=== PATIENT | female | born 1950 | race American Indian/Alaskan Native ===

== ENCOUNTER 2018-03-17 10:16 | Outpatient (CLI) | payer MEDICARE, OTHER ==
--- NOTE | 2018-03-24 13:00 | Mammography Report ---
BILATERAL DIGITAL DIAGNOSTIC MAMMOGRAM with CAD and RIGHT BREAST ULTRASOUND: 03/17/18 10:30:00 CLINICAL: Right palpable breast lump. COMPARISON:02/05/15 FINDINGS: The breasts are heterogeneously dense, which may obscure small masses.A right subareolar oval slightly irregular retroareolar mass is identified on spot magnification views in the area of the palpable marker . No architectural distortion or suspicious calcifications. Left breast is negative. Ultrasound of the right breast in the area of the palpable marker demonstrated an irregular heterogeneous spiculated mass with mixed echogenicity and shadowing. It measures approximately 9 x 7 mm. The palpable finding is more impressive than the ultrasound finding but probably correlates with the mammographic mass. At the time of my scan, the patient also described to me a palpable lump at 5 o'clock approximately 5 cm from the nipple. Ultrasound in this area demonstrated an irregular heterogeneous hypoechoic mass with shadowing measuring approximately 9 x 7 mm. IMPRESSION: Two suspicious palpable masses of the right breast with palpable findings that are more impressive than ultrasound or mammographic findings. Recommend ultrasound guided needle core biopsy of the right breast at 2 sites. BI-RADS CATEGORY: 4--Suspicious I discussed the findings and the recommendation for two ultrasound guided needle biopsies of the right breast with the patient at the time of the examination. ACR BI-RADS MAMMOGRAPHIC CODES: 0 = Needs additional imaging evaluation; 1 = Negative; 2 = Benign; 3 = Probably benign; 4 = Suspicious; 5 = Malignant; 6 = Known biopsy-proven malignancy COMMENT: 1. Dense breast tissue, i.e., adenosis, fibrocystic changes, etc., may obscure an underlying neoplasm. 2. Approximately 10% of cancers are not detected with mammography. 3. A negative mammography report should not delay biopsy if a clinically suspicious mass is present. COMMENT: Patient follow-up letters are generated by our [employer] application.
== END 2018-03-17 10:17 | disposition home or self-care (01) ==
LOC: SPVWC 10:16
PROVIDERS: ATTEND Nurse Practitioner Family
DX: N63.10 Unspecified lump in the right breast, unspecified quadrant (principal)
CPT/HCPCS: 77066

== ENCOUNTER 2018-04-20 14:12 | Outpatient (CLI) | payer MEDICARE, OTHER ==
--- NOTE | 2018-04-21 09:02 | Ultrasound Report ---
ULTRASOUND GUIDED NEEDLE CORE BIOPSY OF A RIGHT AXILLARY LYMPH NODE WITH CLIP PLACEMENT : 04/20/18 14:12:00 CLINICAL: Known right breast cancer with a suspicious right axillary lymph node. COMPARISON :03/17/18 FINDINGS: The procedure was explained to the patient and informed consent was obtained. Ultrasound demonstrated a suspicious lymph node with asymmetrically thickened cortex measuring 6 mm. The skin in the axilla was prepped with Betadine and anesthetized with 1% lidocaine. Ultrasound guided needle core biopsy of the lymph node was performed through a small dermatotomy using 2% lidocaine with epinephrine for deep anesthesia and a 18-gauge Achieve biopsy device. 2 samples were obtained and placed in formalin. A clip was deployed within the lymph node. Hemostasis was achieved with minimal pressure and a sterile dressing was applied. The patient tolerated the procedure well and there were no apparent complications. She was discharged in good condition and was given instructions for wound care and followup. IMPRESSION: Uncomplicated ultrasound-guided needle core biopsy of a right axillary lymph node with clip placement.
== END 2018-04-20 14:13 | disposition home or self-care (01) ==
LOC: SPVWC 14:12
PROVIDERS: ATTEND Surgery
DX: C50.911 Malignant neoplasm of unspecified site of right female breast (principal)
CPT/HCPCS: 38505; 76942; 88305

== ENCOUNTER 2018-05-02 09:06 | Outpatient (CLI) | payer MEDICARE, OTHER ==
--- NOTE | 2018-05-03 08:47 | Magnetic Resonance Report ---
BILATERAL BREAST MRI WITHOUT AND WITH CONTRAST: 05/02/18 09:06:00 CLINICAL: Newly diagnosed right breast cancer at 8 o'clock near the nipple and at 5 o'clock 5 cm from the nipple. She had an ultrasound guided needle biopsy at both sites on 04/14/18 with pathologic result of invasive carcinoma with lobular features at 8 o'clock and invasive lobular carcinoma at 5 o'clock. She also had an ultrasound guided needle biopsy of a right axillary lymph node on 04/21/18 which demonstrated metastatic tumor. COMPARISON:03/17/18 bilateral mammogram and right breast ultrasound. TECHNIQUE: Axial 1.0-mm T1 without, axial high resolution 2.0-mm T2 and axial 1.0-mm dynamic Vibrant high-resolution postcontrast T1 fat saturation sequences on a 1.5 Penny magnet. The examination was performed with an 8 channel dedicated [place] breast coil. Post processing with CAD and subtraction was performed on an [employer] workstation. 16 cc of Multihance was injected without incident for the contrast portion of the exam. Consent was obtained prior to the administration of the contrast. FINDINGS: Right: Moderate background parenchyma enhancement. An irregular enhancing mass at 8 o'clock 2.2 cm from the nipple measures 18.5 x 9.7 x 5.6 mm. It contains a biopsy clip and correlates with a known cancer. It demonstrates heterogeneous enhancement with mixed kinetics, 124% peak enhancement, 65% type I persistent, 35% type II plateau and 0% type III washout. An irregular spiculated poorly enhancing mass at 5 o'clock 6.3 cm from the nipple correlates with the second known cancer. It measures approximately 2.2 x 1.0 x 1.0 cm. It demonstrates heterogeneous enhancement with mixed kinetics, 115% peak enhancement, 79% type I persistent, 20 recent type II plateau in 1% type III washout. A third suspicious lesion of focal non-Mass enhancement is identified in the lower outer quadrant 8.9 cm from the nipple. It measures approximately 1.0 x 1.0 x 0.4 cm and demonstrates heterogeneous enhancement with mixed kinetics, 264% peak enhancement, 76% type I persistent, 24% type II plateau in 0% type III washout. A 2.1 x 1.2 cm level I right axillary lymph node contains a biopsy clip and correlates with the proven metastatic lymph node. A second level II right axillary lymph node is suspicious with minimal central fat and measures 1.0 cm maximum. Left: Minimal background parenchymal enhancement. No mass or suspicious enhancement. No suspicious left axillary or left internal mammary lymph nodes. IMPRESSION: 1. Multicentric right breast cancer with two biopsy proven cancers and a third highly suspicious lesion of non-Mass enhancement. 2. Right axillary lymph node metastasis with two abnormal right axillary lymph nodes. 3. Negative left breast. RIGHT BI-RADS 6 -- Known Cancer LEFT BI-RADS 1 -- Negative
== END 2018-05-02 09:07 | disposition home or self-care (01) ==
LOC: SPVIMAG 09:06
PROVIDERS: ATTEND Surgery
DX: C50.912 Malignant neoplasm of unspecified site of left female breast (principal)
CPT/HCPCS: A9577; C8908; 77059

== ENCOUNTER 2018-05-18 05:54 | Day surgery (SDC) | payer MEDICARE ==
[~2018-05-18 05:54] MED LIST: ANCEF/STERILE WATER 2 GM/20 ML 2 GM/20 ML SYRINGE IV NR; LACTATED RINGERS 1,000 ML IV SCH
[2018-05-18] MEDS ORDERED: VERSED IV NR (06:00)
[2018-05-18] MEDS ORDERED: NACL BACTERIOSTATIC INFILTRATI ONE (06:30)
--- NOTE | 2018-05-18 07:07 | Anesthesia Day of Surgery ---
Anesthesia Day of Surgery - Day of Surgery Patient Examined: Yes Patient H&P Reviewed: Yes Patient is NPO: Yes
--- NOTE | 2018-05-18 07:07 | Anesthesia Consultation ---
Anesthesia Consult and Med Hx Date of service: 05/18/18 - Airway Anesthetic Teeth Evaluation: Good ROM Head & Neck: Adequate Mental/Hyoid Distance: Adequate Mallampati Class: Class II Intubation Access Assessment: Probably Good - Pulmonary Exam CTA: Yes - Cardiac Exam Cardiac Exam: RRR - Pre-Operative Health Status ASA Pre-Surgery Classification: ASA3 Proposed Anesthetic Plan: General, MAC - Cardiovascular System Hx Hypertension: Yes - Central Nervous System Hx Psychiatric Problems: No - Endocrine Hx Non-Insulin Dependent Diabetes: Yes - Other Systems Hx Alcohol Use: No Hx Substance Use: No Hx Cancer: Yes
[2018-05-18] MEDS ORDERED: MARCAINE 0.5% 30 ML INFILTRATI ONE (07:17)
[2018-05-18] MEDS ORDERED: NACL 0.9% 250ML 250 ML ONE (07:17)
[2018-05-18] MEDS ORDERED: XYLOCAINE 1% 20 mL ONE (07:17)
[2018-05-18] MEDS ORDERED: HEPARIN ONE (07:17)
[2018-05-18] MEDS ORDERED: GELFOAM TP ONE (07:17)
[2018-05-18] MEDS ORDERED: HEPARIN 10,000 UNITS/10 ML ONE (07:20)
[2018-05-18] MEDS ORDERED: SUBLIMAZE ONE (07:24)
[2018-05-18] MEDS ORDERED: VERSED ONE (07:24)
[2018-05-18] MEDS ORDERED: DIPRIVAN 10 MG/ML IV ONE (07:24)
[2018-05-18] MEDS ORDERED: DILAUDID IV PRN (07:30)
[2018-05-18] MEDS ORDERED: PERCOCET 5/325 PO PRN (07:30)
[2018-05-18] MEDS ORDERED: ZOFRAN IV PRN (07:30)
--- NOTE | 2018-05-18 07:41 | Short Stay Summary ---
Short Stay Documentation Date of service: 05/18/18 - History H&P: obtained from office - Allergies and Medications Current Medications: Allergies No Known Allergies Allergy (Verified 05/11/18 16:03) Home Medications Medication Instructions Recorded Confirmed Last Taken Type Glimepiride [Amaryl] 4 mg PO BID 05/11/18 05/18/18 05/17/18 17:30 History Losartan Potassium 100 mg PO DAILY 05/11/18 05/18/18 05/17/18 10:00 History Metformin HCl [Glucophage] 1,000 mg PO BID 05/11/18 05/18/18 05/17/18 17:00 History Active Medications Hydromorphone HCl (Dilaudid) 0.25 mg IV Q10MIN PRN PRN Reason: Pain, Moderate (4-6) Stop: 05/18/18 18:00 Lactated Ringer's (Lactated Ringers) 1,000 mls @ 100 mls/hr IV DIRECT JUSTINA Last Admin: 05/18/18 06:50 Dose: 100 mls/hr Cefazolin Sodium (Ancef/Sterile Water 2 Gm/20 Ml) 2 gm in 20 mls @ 80 mls/hr IV PREOP NR; Protocol Stop: 05/18/18 23:59 Midazolam HCl (Versed) 2 mg IV PREOP NR Stop: 05/18/18 23:59 Last Admin: 05/18/18 07:08 Dose: 2 mg Ondansetron HCl (Zofran) 4 mg IV ONCE PRN PRN Reason: Nausea And Vomiting Stop: 05/18/18 18:00 Oxycodone/Acetaminophen (Percocet 5/325) 1 tab PO ONCE PRN PRN Reason: Pain, Moderate (4-6) Stop: 05/18/18 16:00 - Physical exam General appearance: no acute distress, well-nourished Integumentary: no rash HEENT: EOMI Lungs: Normal air movement - Brief post op/procedure progress note Date of procedure: 05/18/18 (Dictation:[id number]) Pre-op diagnosis: breast cancer Post-op diagnosis: same Procedure: Ultrasound guided port placement Anesthesia: GETA Findings: normal anatomy Surgeon: MARIEL ERAZO Estimated blood loss: minimal (10cc) Pathology: none Condition: stable - Hospital course Hospital course: uneventful - Disposition Condition at discharge: Stable Disposition: DC-01 TO HOME OR SELFCARE Short Stay Discharge Plan Diet: regular Wound: open to air, keep clean and dry, other (May shower tomorrow. Pat dry wounds. Apply ice 4-5x/day for 10-15min at a time for 1 week) Special Instructions: no heavy lifting (or strenuous activity for 1 week) Additional Instructions: KEEP WOUND OPEN TO AIR AND CLEAN AND DRY MAY SHOWER IN AM PAT WOUND DRY APPLY ICE 4-5 TIMES PER DAY FOR 10-15 MINUTES AT A TIME FOR [address] CAUSEY FOR ALL QUESTIONS AND CONCERNS AND FOR FOLLOW UP APPOINTMENT Follow up with: BRAIN COLIN MD [Primary Care Provider] - 7 Days Forms: Outpatient Surgery DC Inst. Prescriptions: oxyCODONE /ACETAMINOPHEN [Percocet 5/325 mg] 1 tab PO Q6H PRN #20 tablet PRN Reason: Pain, Moderate (4-6)
[2018-05-18] MEDS ORDERED: NACL 0.9% IR ONE (08:22)
[2018-05-18] MEDS ORDERED: MARCAINE 0.5% INFILTRATI ONE (08:22)
[2018-05-18] MEDS ORDERED: HEPARIN IV ONE (08:22)
[2018-05-18] MEDS ORDERED: NACL 0.9% 250ML IV ONE (08:27)
[2018-05-18] MEDS ORDERED: NEO SYNEPHRINE/NS Syringe(OR USE) IV ONE (08:28)
[2018-05-18] MEDS ORDERED: XYLOCAINE MPF 2% ONE (08:28)
[2018-05-18] MEDS ORDERED: DECADRON ONE (08:29)
[2018-05-18] MEDS ORDERED: ZOFRAN ONE (08:29)
[2018-05-18] MEDS ORDERED: XYLOCAINE 1% 20 mL INFILTRATI ONE (08:29)
--- NOTE | 2018-05-18 09:22 | Fluoroscopy Report ---
AP CHEST: HISTORY: Breast cancer, Tesgrk-c-Vvew insertion Left subclavian Jbrieq-t-Vnmt has been inserted which terminates in the right atrium. No pneumothorax is visualized. AP view of the chest demonstrates a normal mediastinal and cardiac contour with clear lungs and normal bony and soft tissue structures. IMPRESSION: Left Arrzdw-m-Fnaf insertion. No pneumothorax.
--- NOTE | 2018-05-18 10:17 | Post Anesthesia Evaluation ---
- Post Anesthesia Evaluation Patient Participated: Yes Airway Patent: Yes Stable Respiratory Function: Yes Temp > 96.8F: Yes Pain Manageable: Yes Adequeate Hydration: Yes Anesthesia Complications: No
[2018-05-18 11:22] VITALS: BP 135/79
--- NOTE | 2018-05-18 17:09 | Operative Report ---
PREOPERATIVE DIAGNOSIS: Right breast cancer. POSTOPERATIVE DIAGNOSIS: Right breast cancer. PROCEDURES: 1. Insertion of tunneled CV catheter, CPT CODE 22603. 2. Ultrasound-guided vascular access, CPT CODE 65224. ATTENDING PHYSICIAN: Yeimy Spencer MD ANESTHESIA: General. ESTIMATED BLOOD LOSS: Less than 20 mL. FINDINGS: Normal vascular anatomy. IMPLANTS: Infusaport. COMPLICATIONS: None. DISPOSITION: Stable, transferred to Recovery Room. INDICATIONS: This is a 67-year-old female with a recent diagnosis of breast cancer. She was assessed to be in need for chemotherapy. Request have been made for port placement. Procedure, risks, benefits were explained to the patient. Risks included but were not limited to infection, bleeding, pain, injury to surrounding structures, possible hemopneumothorax, possible catheter malfunction, and need for replacement. The patient understood and consented. OPERATIVE NOTE: The patient was brought to the operating room and placed on the table in supine position. After adequate general anesthesia was established, the patient was properly positioned with a roll underneath the back. Sterile prep and drape was performed. Left arm was tucked to the side. All pressure points were padded. Antibiotics have been given prior to start of the case. SCDs were in place. Time-out was called. I began by evaluating the left subclavian vein and surrounding structures. I saw an easily identified vein with the ultrasound. It was easily compressible. I saw no clot within it. I saw no signs of stenosis or obstruction. I felt this was a good target. I anesthetized the planned access site with a combination of 1% lidocaine and 0.5% Marcaine. The patient was in Trendelenburg position. When attempt was made using an ultrasound visible needle. I accessed the vein under direct vision with the ultrasound. We watched the needle go into the vein and had good aspiration of blood that appeared venous. I could see the tip of the needle within the vein itself. We were able to access it on the first attempt, guidewire was easily passed. We confirmed the position of the wire with fluoroscopy, it was going towards the heart. We then decided where to place the port itself. The planned insertion site was anesthetized with the numbing medicine. Site was incised pocket was bluntly created. Electrocautery was used for hemostasis. We checked to make sure the port fit properly. Thereafter, we tunneled the catheter up to the vascular access site. Dilator and sheath were passed over the wire and then catheter was inserted. We adjusted the length and positioning under fluoroscopy. Thereafter, we made the connections to the port and inserted the port into the pocket. I checked the port and the catheter. We had easy aspiration and flushing with dilute heparinized saline. We then removed the sheath in its entirety, placed the catheter completely into the tract underneath the skin and then we rechecked the position with fluoroscopy, it appeared to be in a relatively good position. The patient had no arrhythmias. Vitals were completely stable. We then made sure we had good hemostasis. I closed the port pocket site with interrupted 3-0 Vicryl sutures in the dermis. Skin was closed with 4-0 Monocryl subcuticular sutures. Skin was cleaned and dried. Dermabond was placed. The patient tolerated procedure well. We did an x-ray immediately at the end of the case with the patient in the upright position. I saw no evidence of pneumothorax and the official report confirmed that. Catheter appeared to be in a good position. The patient tolerated procedure well. There were no complications. All counts were correct at the end of the case. JOB# [id number] JERZY/TRISTAN
== END 2018-05-18 11:09 | disposition home or self-care (01) ==
LOC: OR 05:54
PROVIDERS: ATTEND Surgery
DX: C50.911 Malignant neoplasm of unspecified site of right female breast (principal); E11.9 Type 2 diabetes mellitus without complications; I10 Essential (primary) hypertension; Z79.84 Long term (current) use of oral hypoglycemic drugs; Z98.890 Other specified postprocedural states
CPT/HCPCS: 36561; 77001; 82962; A4649; C1788; J0690; J1100; J1644; J2250; J2370; J2405; J2704; J3010; J7050; J7120

== ENCOUNTER 2018-05-26 10:38 | Outpatient (CLI) | payer MEDICARE ==
--- NOTE | 2018-05-26 14:20 | PET Report ---
PET/CT:05/26/18 10:38:00 CLINICAL: Breast cancer initial staging. Newly diagnosed multicentric invasive lobular right breast cancer. Biopsy confirm right axillary lymph node metastasis. RADIOPHARMACEUTICAL: 14.64mCi F18-FDG. COMPARISON: MRI Breast 05/02/18 TECHNIQUE- Following intravenous injection of F-18 FDG and an approximately 60 minute uptake period, CT and PET images from the mid skull to the upper thighs were acquired with the patient in the fasted state. No contrast was administered. The CT protocol used for this PET CT study is designed for attenuation correction and anatomic localization of PET abnormalities. This real estate portfolio manager CT is not desired to produce and cannot replace, tjtzr-oz-gqw-art diagnostic CT scans with specific imaging protocols for different body parts and indications. Plasma glucose at the time of this test: 148g/dl. The standardized uptake values (SUV) are normalized to patient body weight and indicate the highest activity concentration (SUV max) in a given disease site. FINDINGS: Brain--Physiologic FDG uptake in the visualized regions of the brain. Neck--Physiologic FDG uptake in mucosal structures. Chest--Physiologic FDG uptake in mediastinal blood pool and myocardium. Lungs--No abnormal uptake. No pulmonary nodule or mass. Pleura/pericardium--No abnormal uptake. Thoracic nodes--Three small right axillary lymph nodes with mild FDG uptake slightly greater than background. The largest correlates with the biopsy proven metastatic lymph node. It measures 1.0 cm with SUV 3.1. Hepatobiliary--No abnormal uptake. Liver background SUV mean, as a reference for comparing FDG studies, is 3.2 . No liver mass. Spleen--No abnormal uptake. Pancreas--No abnormal uptake. Adrenal Glands--No abnormal uptake. Kidneys/Ureters/Bladder--No abnormal uptake. Abdominopelvic Nodes--No abnormal uptake. Bowel/Peritoneum/Mesentery--No abnormal uptake. Physiologic FDG uptake throughout small and large bowel. Pelvic organs--No abnormal uptake. However, the left ovary is mildly enlarged with numerous punctate calcifications. It measures 3.6 x 2.8 cm. FDG uptake is equal and the normal uterus with a SUV 2.5. A right ovary is not identified. Bones/Soft Tissues--No abnormal uptake and no suspicious bone lesions. Other findings: 2 biopsy clips in the right breast correlate with known cancers. However, no abnormal FDG uptake in the right breast. IMPRESSION-1. Right breast cancer with biopsy proven right axillary janey metastasis. 2. No evidence of additional metastatic disease. 3. An enlarged left ovary with punctate calcifications. Recommend further evaluation with pelvic ultrasound.
== END 2018-05-26 10:39 | disposition home or self-care (01) ==
LOC: PET 10:38
PROVIDERS: ATTEND Internal Medicine Hematology & Oncology
DX: C50.111 Malignant neoplasm of central portion of right female breast (principal); I10 Essential (primary) hypertension; E11.9 Type 2 diabetes mellitus without complications
CPT/HCPCS: 78815; 82962; A9552

== ENCOUNTER 2018-07-04 09:16 | Outpatient (CLI) | payer MEDICARE ==
--- NOTE | 2018-07-04 11:35 | Ultrasound Report ---
ULTRASOUND PELVIC COMPLETE ULTRASOUND TRANSVAGINAL HISTORY: Ovarian mass. COMPARISON: PET CT dated 05/26/18. TECHNIQUE: Transabdominal and transvaginal ultrasound with color doppler interrogation. FINDINGS: Uterus: The uterus is retroflexed and measures 5.7 x 2.7 x 4.8 cm. No evidence for uterine mass. The cervix is unremarkable. Endometrium: 3 mm. No mass or infiltrative changes. Right ovary: 2.2 x 0.9 x 1.1 cm. No focal abnormality. Left ovary: No normal left ovary is identified. The left ovary measures 2.6 x 1.3 x 2.9 cm and appears to be partially calcified within diffuse posterior shadowing. No discrete mass is identified secondary to shadowing artifact. No pelvic fluid or mass is identified. Normal color doppler interrogation. IMPRESSION: Abnormal left ovary. The left ovary appears predominantly calcified although no discrete mass is demonstrated on ultrasound. The etiology of this is unclear. A neoplastic process cannot be excluded although this lesion is not hypermetabolic on PET imaging. Chronic torsion?
== END 2018-07-04 09:17 | disposition home or self-care (01) ==
LOC: US 09:16
PROVIDERS: ATTEND Obstetrics & Gynecology
DX: N83.9 Noninflammatory disorder of ovary, fallopian tube and broad ligament, unspecified (principal); I10 Essential (primary) hypertension; E11.9 Type 2 diabetes mellitus without complications
CPT/HCPCS: 76830; 76856

== ENCOUNTER 2018-11-24 09:47 | Outpatient (CLI) | payer MEDICARE ==
--- NOTE | 2018-11-28 13:14 | PET Report ---
PET/CT:11/24/18 09:47:00 CLINICAL: Breast cancer restaging. History of multicentric invasive lobular right breast cancer and right axillary janey metastasis. RADIOPHARMACEUTICAL: 15.494mCi F18-FDG. COMPARISON: 05/26/18 PET/CT TECHNIQUE- Following intravenous injection of F-18 FDG and an approximately 60 minute uptake period, CT and PET images from the mid skull to the upper thighs were acquired with the patient in the fasted state. No contrast was administered. The CT protocol used for this PET CT study is designed for attenuation correction and anatomic localization of PET abnormalities. This piggery worker CT is not desired to produce and cannot replace, dxzxs-lg-dyn-art diagnostic CT scans with specific imaging protocols for different body parts and indications. Plasma glucose at the time of this test: 101g/dl. The standardized uptake values (SUV) are normalized to patient body weight and indicate the highest activity concentration (SUV max) in a given disease site. FINDINGS: Brain--Physiologic FDG uptake in the visualized regions of the brain. Neck--Physiologic FDG uptake in mucosal structures. No mass or lymphadenopathy. Chest--Physiologic FDG uptake in mediastinal blood pool and myocardium. 2 biopsy clips in the right breast and no breast mass. Lungs--No abnormal uptake. No pulmonary nodule or mass. Pleura/pericardium--No abnormal uptake. Thoracic nodes--No abnormal uptake in no lymphadenopathy. A biopsy clip and a right axillary lymph node. Hepatobiliary--No abnormal uptake. Liver background SUV mean, as a reference for comparing FDG studies, is 3.2 compared to 3.5 on the last exam. No liver mass. Spleen--No abnormal uptake. Pancreas--No abnormal uptake. Adrenal Glands--No abnormal uptake. Kidneys/Ureters/Bladder--No abnormal uptake. Abdominopelvic Nodes--No abnormal uptake. Bowel/Peritoneum/Mesentery--No abnormal uptake. Pelvic organs--No abnormal uptake. Bones/Soft Tissues--No abnormal uptake and no suspicious bone lesion. Other findings: Physiologic uptake throughout the small and large bowel. IMPRESSION- Negative study with no evidence of disease recurrence or metastasis.
== END 2018-11-24 09:48 | disposition home or self-care (01) ==
LOC: PET 09:47
PROVIDERS: ATTEND Surgery
DX: C50.511 Malignant neoplasm of lower-outer quadrant of right female breast (principal); I10 Essential (primary) hypertension; E11.9 Type 2 diabetes mellitus without complications
CPT/HCPCS: 78815; 82962; A9552

== ENCOUNTER 2018-11-29 13:52 | Outpatient (CLI) | payer MEDICARE ==
--- NOTE | 2018-11-29 14:22 | Mammography Report ---
RIGHT DIGITAL DIAGNOSTIC MAMMOGRAM with CAD: 11/29/18 13:52:00 CLINICAL: Followup right breast cancer at 2 sites. COMPARISON:04/13/18 FINDINGS: The breast is heterogeneously dense with a stable fibroglandular pattern. Biopsy clips at 5 o'clock and 6 o'clock No mass, architectural distortion or suspicious calcifications. IMPRESSION: No mammographic evidence of malignancy. BI-RADS CATEGORY: 2 - - Benign RECOMMENDATION: Routine mammographic screening. ACR BI-RADS MAMMOGRAPHIC CODES: 0 = Needs additional imaging evaluation; 1 = Negative; 2 = Benign; 3 = Probably benign; 4 = Suspicious; 5 = Malignant; 6 = Known biopsy-proven malignancy COMMENT: 1. Dense breast tissue, i.e., adenosis, fibrocystic changes, etc., may obscure an underlying neoplasm. 2. Approximately 10% of cancers are not detected with mammography. 3. A negative mammography report should not delay biopsy if a clinically suspicious mass is present. COMMENT: Patient follow-up letters are generated by our [employer] application.
--- NOTE | 2018-11-29 16:19 | Ultrasound Report ---
RIGHT BREAST ULTRASOUND: 11/29/18 13:52:00 CLINICAL: Right breast cancer at 2 sites status post chemotherapy. COMPARISON: 04/13/18 and 03/17/18 right breast ultrasound FINDINGS: Ultrasound of the right breast(including all four quadrants and the retroareolar area) was performed. An irregular mixed echogenicity mass with irregular and poorly defined margins and shadowing at 5 o'clock 4 cm from the nipple correlates with a known cancer. The mass is slightly smaller and measures 9 x 8 x 7 mm. The mass previously measured approximately 12 x 12 mm at the time of biopsy. Focal duct ectasia but no residual mass at 8 o'clock near the areola at the site of the second cancer. No other mass, no fluid collection or cysts. IMPRESSION: A residual 9 mm mass at 5 o'clock 4 cm from the nipple. Partial response to chemotherapy. Duct ectasia but no mass at 8 o'clock near the areola at the site of the second known cancer. BI-RADS 6 -- Known Cancer
== END 2018-11-29 13:53 | disposition home or self-care (01) ==
LOC: SPVWC 13:52
PROVIDERS: ATTEND Surgery
DX: C50.511 Malignant neoplasm of lower-outer quadrant of right female breast (principal); N60.41 Mammary duct ectasia of right breast; N63.14 Unspecified lump in the right breast, lower inner quadrant; I10 Essential (primary) hypertension; E11.9 Type 2 diabetes mellitus without complications

== ENCOUNTER 2019-09-05 05:44 | Day surgery (SDC) | payer MEDICARE ==
--- NOTE | 2019-09-04 11:23 | Short Stay Summary ---
Short Stay Documentation Date of service: 09/05/19 - History H&P: obtained from office - Allergies and Medications Current Medications: Allergies No Known Allergies Allergy (Verified 08/21/19 12:22) Home Medications Medication Instructions Recorded Confirmed Last Taken Type Glimepiride [Amaryl] 4 mg PO BID 05/11/18 08/21/19 12/06/18 History metFORMIN XR [Glucophage XR] 500 mg PO BID 12/06/18 08/21/19 12/06/18 History Anastrozole [Arimidex] 1 mg PO DAILY 08/21/19 08/21/19 Unknown History - Physical exam General appearance: no acute distress Integumentary: no rash HEENT: Atraumatic Lungs: Normal air movement Neurological: Normal speech - Brief post op/procedure progress note Date of procedure: 09/05/19 (dictation: [id number]) Pre-op diagnosis: history of breast cancer Post-op diagnosis: same Procedure: Port catheter removal IVF 400cc EBL min Anesthesia: MAC Findings: normal tissue. Surgeon: MARIEL ERAZO Estimated blood loss: minimal Pathology: list (midportion of catheter) Specimen disposition: to lab Condition: stable - Hospital course Hospital course: uneventful - Disposition Condition at discharge: Stable Disposition: [id number]-01 TO HOME OR SELFCARE Short Stay Discharge Plan Diet: regular Wound: open to air, keep clean and dry Special Instructions: no heavy lifting Additional Instructions: Post Operative Instructions Activity: no heavy lifting for next 1 week. May shower tomorrow. Pat dry the wound or wounds. Keep incision sites clean and dry After surgery, start with a light diet. Consider having a liquid diet first. If you do well, you can advance to a regular diet as you feel comfortable. Apply an ice pack to the wound or wounds for 10-20 minutes at a time. Do this at least 4-5 times a day. You can do it more if he would like. Alternate the use of ibuprofen and Tylenol for the first 2 days. I want you to take these on a scheduled basis. Take 600 mg of ibuprofen every 6 hours. Take 500 mg of Tylenol every 6 hours. You should alternate these 2 medicines. In other words, beginning with the ibuprofen. After 3 hours, take the Tylenol. Keep alternating the 2 drugs every 3 hours. Do this on a scheduled basis for the first 2 days. After that, you can take them as needed. It is very important that you use the prescription pain medicine only for very severe pain. Do not take the prescription medicine before you try using the ibuprofen and Tylenol. We will call you in a couple of days to see how youre doing. If you have any questions or concerns, always feel free to call the clinic at any time. Follow up with: BRAIN COLIN MD [Primary Care Provider] - 7 Days Forms: Outpatient Surgery DC Inst. Prescriptions: HYDROcodone/APAP 5-325 [Axis 5-325 mg TAB] 1 each PO Q6HR PRN #10 tablet PRN Reason: Pain , Severe (7-10)
[2019-09-05] MEDS ORDERED: GABAPENTIN 300 MG CAP PO NR (06:00)
[2019-09-05] MEDS ORDERED: CELECOXIB 200 MG CAP PO NR (06:00)
[2019-09-05] MEDS ORDERED: ceFAZolin/Water 2 GM/20 ML 2 GM/20 ML SYRINGE IV NR (06:00)
[2019-09-05] MEDS ORDERED: SODIUM CHLORIDE 0.9% 1000 ML 1,000 ML IV SCH (06:00)
[2019-09-05] MEDS ORDERED: ACETAMINOPHEN 500 MG TAB PO SCH (06:00)
[2019-09-05] MEDS ORDERED: BACTERIOSTATIC SODIUM CHLORIDE 0.9% 30 ML VIAL INFILTRATI ONE (06:20)
[2019-09-05] MEDS ORDERED: BUPIVACAINE-EPINEPHRINE/PF 0.5%-1:200,000 (30 ML) VIAL INFILTRATI ONE ×2 (06:56→08:15)
[2019-09-05] MEDS ORDERED: LIDOCAINE (1%) 10 MG/1 ML VIAL 20 ML MDV ONE (06:56)
--- NOTE | 2019-09-05 07:12 | Anesthesia Day of Surgery ---
Anesthesia Day of Surgery - Day of Surgery Patient Examined: Yes Patient H&P Reviewed: Yes Patient is NPO: Yes
--- NOTE | 2019-09-05 07:14 | Anesthesia Consultation ---
Anesthesia Consult and Med Hx Date of service: 09/05/19 - Airway Anesthetic Teeth Evaluation: Good, Caps ROM Head & Neck: Adequate Mental/Hyoid Distance: Adequate Mallampati Class: Class II Intubation Access Assessment: Probably Good - Pre-Operative Health Status ASA Pre-Surgery Classification: ASA2 Proposed Anesthetic Plan: General, MAC - Pulmonary Hx Smoking: No Hx Asthma: No - Cardiovascular System Hx Hypertension: Yes - Central Nervous System Hx Seizures: No Hx Psychiatric Problems: No - Endocrine Hx Non-Insulin Dependent Diabetes: Yes Hx Thyroid Disease: No - Hematic Hx Anemia: Yes - Other Systems Hx Alcohol Use: No Hx Substance Use: No Hx Cancer: Yes
[2019-09-05] MEDS ORDERED: LIDOCAINE MPF (2%) 20 MG/1 ML VIAL 5 ML ONE (07:37)
[2019-09-05] MEDS ORDERED: fentaNYL 100 MCG/2 ML INJ ONE (07:37)
[2019-09-05] MEDS ORDERED: PROPOFOL 200 MG/20 ML VIAL IV ONE (07:38)
[2019-09-05] MEDS ORDERED: MIDAZOLAM 2 MG/2 ML INJ IV NR (08:00)
[2019-09-05] MEDS ORDERED: LIDOCAINE (1%) 10 MG/1 ML VIAL 20 ML MDV INFILTRATI ONE (08:15)
[2019-09-05] MEDS ORDERED: SODIUM CHLORIDE 0.9% IRR 1,000 ML BOTTLE IR ONE (08:15)
[2019-09-05 09:16] VITALS: BP 132/73
--- NOTE | 2019-09-05 20:02 | Post Anesthesia Evaluation ---
- Post Anesthesia Evaluation Patient Participated: Yes Airway Patent: Yes Stable Respiratory Function: Yes Nausea/Vomiting: No Temp > 96.8F: Yes Pain Manageable: Yes Adequeate Hydration: Yes Anesthesia Complications: No Block Receding Appropriately: Not Applicable Patient on Ventilator: No
--- NOTE | 2019-09-05 22:35 | Operative Report ---
PREOPERATIVE DIAGNOSIS: History of breast cancer. POSTOPERATIVE DIAGNOSIS: History of breast cancer. PROCEDURE: Removal of port catheter. ATTENDING PHYSICIAN: Yeimy Spencer MD. ANESTHESIA: Local MAC. ESTIMATED BLOOD LOSS: Minimal. FLUIDS: 400 mL. FINDINGS: Normal catheter and port cavity. SPECIMENS: Mid portion of the catheter. DRAINS: None. DISPOSITION: Stable, transferred to recovery room. INDICATIONS: This is a 68-year-old female who recently completed her chemotherapy for breast cancer. She returns to clinic for removal of port catheter. She would like this to be done in the operating room due to anxiety of the procedure. Procedure, risks, benefits were explained to the patient. Risks included but were not limited to infection, bleeding, pain, injury to surrounding structures, possible need for further procedures in the future. The patient understood and consented. OPERATIVE NOTE: The patient was brought to the operating room and placed on the table in supine position. After adequate sedation was established, the patient was prepped and draped in the usual sterile fashion. SCDs were in place and antibiotics had been administered. Timeout had been called. I began by anesthetizing the old incision site as well as the surrounding area with 0.5% Marcaine and 1% lidocaine. Old incision was incised sharply. Dissection was carried down to the port. Using electrocautery, I dissected away the capsule and the surrounding adhesions. The port was then easily removed from the capsule. The patient was in Trendelenburg position at this point, pressure was starting to be held over the insertion site into the vein. The catheter was removed. Pressure was held. I excised the mid portion of the catheter without touching it and sent that for culture. We held pressure for at least 5 minutes. During that time, I was injecting the surrounding area with local anesthetic. We used a total of 40 mL. After approximately 5 minutes, we released the pressure and then I proceeded to close the deep tissue with interrupted 3-0 Vicryl sutures and skin with a running 4-0 Monocryl subcuticular stitch. I did in this manner so that we would have at least a few minutes to observe for any bleeding, there was none. The pocket was completely clean and hemostatic. No evidence of any bleeding. At this point, the patient was in reverse Trendelenburg position. Skin was cleaned and dried. Dermabond was placed. The patient tolerated the procedure well. There were no complications. All counts were correct at the end of the case. I did advise the family that it would be best to use an ice pack frequently. This discussion was held preoperatively as well, but I emphasized to them that they should have a moderate weight ice pack to hold pressure over the area to help with the inflammation and to minimize risk of recurrent bleeding. One of the concerns that I have was during the case she was coughing quite a bit. I was concerned that postoperatively if she began to cough she might increase the venous pressures such that the temporary clot may come off. This was explained to the family so that they understood and they were advised to let me know if they start to see signs of bruising. JOB# [id number] JERZY/TRISTAN
== END 2019-09-05 05:45 | disposition home or self-care (01) ==
LOC: OR 05:44
PROVIDERS: ATTEND Surgery
DX: Z45.2 Encounter for adjustment and management of vascular access device (principal); I10 Essential (primary) hypertension; E11.9 Type 2 diabetes mellitus without complications; Z80.0 Family history of malignant neoplasm of digestive organs; Z90.13 Acquired absence of bilateral breasts and nipples; Z79.899 Other long term (current) drug therapy; Z79.84 Long term (current) use of oral hypoglycemic drugs; Z85.3 Personal history of malignant neoplasm of breast; Z80.1 Family history of malignant neoplasm of trachea, bronchus and lung; Z80.3 Family history of malignant neoplasm of breast; Z98.890 Other specified postprocedural states; Z86.2 Personal history of diseases of the blood and blood-forming organs and certain disorders involving the immune mechanism
CPT/HCPCS: 36590; 82962; 87116; J0690; J2250; J2704; J3010; J7030

== ENCOUNTER 2019-09-08 13:12 | Outpatient (CLI) | payer MEDICARE ==
--- NOTE | 2019-09-12 08:56 | Mammography Report ---
BONE DEXA CLINICAL: History of right breast cancer on aromatase inhibitor. TECHNIQUE: 2 site bone DEXA performed on an Hologic scanner. FINDINGS: The average BMD of the lumbar spine L1-L4 is 0.880g/cm squared with a T score of -2.5 and a Z score o f -0.4. The average total BMD of the left hip is 0.765 g/cm squared with a T score of -1.7and a Z score of -0 .7. IMPRESSION: 1. WHO classification: Osteoporosis with high fracture risk based on spine measurements. 2. WHO classification Osteopenia with increased fracture risk based on left hip measurements. RECOMMENDATION: Clinical correlation and routine screening. Definitions: BMD equal bone mineral density T score = BMD related to peak bone mass of young adult ([place] expressed an standard deviation) Z score = age-matched BMD expressed in SD World health organization (WHO) diagnostic criteria Normal T score greater than equal to 1 standard deviation Osteopenia T score between -1 and -2.4 standard deviation Osteoporosis T score -2.5 standard deviation or below. Note: BMD is not the only risk factor for fracture; also consider factors such as the patient's age, risk of falling, previous osteoporotic fracture, family history of osteoporotic fractures, current sm oker and low body weight. Z scores are not calculated if greater than 80 years of age. Signer Name: Doni Marti MD Signed: 09/12/2019 8:52 AM Workstation Name: [id number]
== END 2019-09-08 13:13 | disposition home or self-care (01) ==
LOC: SPVWC 13:12
PROVIDERS: ATTEND Internal Medicine Hematology & Oncology
DX: C50.111 Malignant neoplasm of central portion of right female breast (principal); N95.1 Menopausal and female climacteric states; D64.9 Anemia, unspecified; Z79.811 Long term (current) use of aromatase inhibitors
CPT/HCPCS: 77080

== ENCOUNTER 2022-03-17 11:46 | Outpatient (CLI) | payer MEDICARE ==
--- NOTE | 2022-03-17 14:25 | Mammography Report ---
DEXA BONE DENSITY SCAN INDICATION / CLINICAL INFORMATION: R68.89 C50.111 D64.9. 71 years Female COMPARISON: 09/08/2019 LUMBAR SPINE, L1-L4: - Bone mineral density (BMD) = 0.871 g/cm2. - T-score = -2.5 - Change (%) since most recent prior (if available): 1% decrease LEFT HIP, NECK : - Bone mineral density (BMD) = 0.603 g/cm2. - T-score = -2.4 - Change (%) since most recent prior (if available): 4.9% decrease IMPRESSION: 1. WHO Classification: Osteoporosis. Fracture Risk: High. 2. 10-Year Fracture Risk (FRAX) = Major Osteoporotic Not reported.% / Hip: Not reported.% FRAX generally not reported for patients with normal or osteoporotic BMD, in [id number] joel ents younger than age 50, or in patients undergoing pharmacotherapy BMD Reporting Guidelines (ISCD, 2015) BMD Reporting in Postmenopausal Women and in Men Age 50 and Older - T-scores are preferred. - The WHO densitometric classification is applicable. BMD Reporting in Females Prior to Menopause and in Males Younger Than Age 50 - Z-scores, not T-scores, are preferred. This is particularly important in children. - A Z-score of -2.0 or lower is defined as below the expected range for age, and a Z-score above -2.0 is within the expected range for age. - Osteoporosis cannot be diagnosed in men under age 50 on the basis of BMD alone. - The WHO diagnostic criteria may be applied to women in the menopausal transition. http://www.iscd.org/official-positions/8282-rjqn-pjsyhqqb-positions-adult/ Signer Name: Jackson Mary MD Signed: 03/17/2022 2:21 PM Workstation Name: [id number]
== END 2022-03-17 11:47 | disposition home or self-care (01) ==
LOC: SPVWC 11:46
PROVIDERS: ATTEND Internal Medicine Hematology & Oncology
DX: M81.0 Age-related osteoporosis without current pathological fracture (principal); C50.111 Malignant neoplasm of central portion of right female breast; R68.89 Other general symptoms and signs; D64.9 Anemia, unspecified; Z79.811 Long term (current) use of aromatase inhibitors
CPT/HCPCS: 77080